=== PATIENT | female | born 1980 | race Caucasian/White ===

== ENCOUNTER 2022-05-25 06:49 | Day surgery (SDC) | payer OTHER, SELFPAY ==
[2022-05-18 14:12] VITALS: BMI 37.9
--- NOTE | 2022-05-21 08:44 | MHC.SHP ---
Pre-Procedural Eval Section A Date of Service: 05/21/22 The patient is an INPATIENT: Yes Changes since office visit: No Cold of Flu in the past 2 weeks, No New Medical Problems, No Changes in Medication and No Patient answered all questions The History & Physical has been completed within 30 days and I have reviewed it.: Yes Section B Chief Complaint: Age-related nuclear cataract, right eye Allergies: Allergies Allergy/AdvReac Type Severity Reaction Status Date / Time levothyroxine AdvReac Intermediate hair loss Verified 05/18/22 14:12 Plan Diagnosis/Plan: Unchanged I have reviewed the history and physical and performed a pertinent physical examination on my patient. No changes have occurred unless specified.
--- NOTE | 2022-05-22 09:55 | HO.ANESPROP2 ---
Documented by User: Lou Nichole NP 05/22/22 09:56 HPI - Anesthesia Eval Consult details Narrative: 41yo F for Right Cataract Extraction IOL Insertion PCP cleared No previous cataract on record [facility] Past Medical History Medical History (Updated 05/19/22 @ 09:11 by Tiffanie Wu RN) COVID-19 vaccine series completed Hypothyroid Legally blind Migraine Retinitis pigmentosa Surgical History Surgical History (Updated 05/18/22 @ 14:10 by Tiffanie Wu RN) History of loop electrical excision procedure (LEEP) Social History Social History Household Members Other:: adult children Are you a primary post acute care nurse to a significant other at home: No Do you presently have visiting nurse or other home services: No Patient Tobacco Use Status: Never used Tobacco Use of substances other than those prescribed or required for medical reasons: No Have you been hit, kicked, punched, or otherwise hurt by someone within the past year? If so, by whom?: No Are you DNR?: No Advance Directives: No Advance Directives Information Provided: Yes (brochure mailed) Advance Directives on File: No Recently lost weight without trying: No Eating poorly because of decreased appetite: No Nutrition Risks: No Nutritional Risk Patient : No FDLMP: 05/16/22 : No Poor oral hygiene: No Meds Allergies Allergy/AdvReac Type Severity Reaction Status Date / Time levothyroxine AdvReac Intermediate hair loss Verified 05/18/22 14:12 Home Medications Medication Instructions Recorded Confirmed Last Taken Type topiramate 50 mg tablet 1 tab PO BID 05/18/22 05/18/22 Unknown History Exam Exam Date and Time: May 22, 2022 0955 Height,Weight and Vital Signs: Height 5 ft 5 in Weight 103.419 kg Assessment and Plan Assessment Anesthesia Assessment: Chart Reviewed Documented by User: Danielle Gibbs MD 05/25/22 08:23 [facility] Active Problems Active Problems: Increased BMI Migraine this am-took topamax. Resolving Denies RANDOLPH Past Medical History Medical History (Updated 05/19/22 @ 09:11 by Tiffanie Wu RN) COVID-19 vaccine series completed Hypothyroid Legally blind Migraine Retinitis pigmentosa Family History Family history of problems with anesthesia: No Surgical History Surgical History (Updated 05/18/22 @ 14:10 by Tiffanie Wu RN) History of loop electrical excision procedure (LEEP) History of Problems with Anesthesia: No Social History Social History Household Members Other:: adult children Are you a primary post acute care nurse to a significant other at home: No Do you presently have visiting nurse or other home services: No Patient Tobacco Use Status: Never used Tobacco Use of substances other than those prescribed or required for medical reasons: No Have you been hit, kicked, punched, or otherwise hurt by someone within the past year? If so, by whom?: No Are you DNR?: No Advance Directives: No Advance Directives Information Provided: Yes (brochure mailed) Advance Directives on File: No Recently lost weight without trying: No Eating poorly because of decreased appetite: No Nutrition Risks: No Nutritional Risk Patient : No FDLMP: 05/16/22 : No Poor oral hygiene: No Meds Allergies Allergy/AdvReac Type Severity Reaction Status Date / Time levothyroxine AdvReac Intermediate hair loss Verified 05/18/22 14:12 Home Medications Medication Instructions Recorded Confirmed Last Taken Type topiramate 50 mg tablet 1 tab PO BID 05/18/22 05/18/22 Unknown History Exam Height,Weight and Vital Signs: Height 5 ft 5 in Weight 103.419 kg Vital Signs Temp Pulse Resp BP Pulse Ox O2 Del Method 05/25/22 07:18 97.0 F 65 18 125/82 98 Room Air Pertinent Lab Results Pertinent Lab Results: Lab Results 05/25/22 Range/Units 06:58 Urine Test NEGATIVE (NEGATIVE) Airway Mallampati Class: II TM Dist: >3cm Neck ROM: Full Loose/Missing/Broken Teeth: Yes (Some missing -extracted) Heart: RRR Lungs: CTAB Assessment and Plan Assessment Anesthesia Assessment: Anesthesia Plan Discussed Final Anesthetic Review Family History of Problems with Anesthesia: No History of Problems with Anesthesia: No NPO: Yes ASA Class: III Final Preanesthetic Review: No Changes in Pt Med Stat, Meds/Allgs Chart Reviewed, Consent Obtained/Reviewed and Anes Risks/Benef Reviewed Patient Risk: Intermediate Procedure Risk: Low Assessment/Block/Sedation in SS: Assess/Block/Sedation-SS Anesthetic Plan Anesthetic Plan: MAC: Disposition: Standard PACU
[2022-05-25 07:13] LABS: UPreg QC Valid YES; Urine Pregnancy NEGATIVE (NEGATIVE)
[2022-05-25 07:18] VITALS: BP 125/82; PULSE 65; RESP 18; TEMP 36.1; O2SAT 98
[2022-05-25] MEDS: Tetracaine HCl/PF 0.5% Oph Sol 4 ML DROPS 1 DROP EYE-RIGHT (07:21)
[2022-05-25] MEDS: Phenylephrine HCL 2.5% Oph SoL 2 ML BOTTLE 1 DROP EYE-RIGHT ×3 (07:21→07:42)
[2022-05-25] MEDS: Tropicamide 1 % Ophth Sol 3 ML BTL 1 DROP EYE-RIGHT ×3 (07:24→07:44)
[2022-05-25] MEDS: Cyclopentolate 1 % Ophth Sol 2 ML DRPBTL 1 DROP EYE-RIGHT ×3 (07:24→07:44)
[2022-05-25] MEDS: Lactated Ringers 500 ML 50 ML IV (07:59)
--- NOTE | 2022-05-25 09:16 | HO.PNOPHT ---
Ophthalmology Procedure Procedure Date of Service: 05/25/22 Ophthalmology Viscoelastic: Healdick Allent Dual Pack Pro Ophthalmology Lenses: TECNIS [id number] (15.5) Procedure Notes: PREOPERATIVE DIAGNOSIS: Decreased visual acuity right eye secondary to cataract POSTOPERATIVE DIAGNOSIS: Same PROCEDURE: Right cataract extraction with intraocular lens insertion SURGEON: Min Terry M.D. ANESTHESIA: Topical/MAC ESTIMATED BLOOD LOSS: None COMPLICATIONS: None After obtaining informed consent, the patient was brought to the operating room suite and placed in the supine position. After adequate sedation per anesthesia, topical drops of Tetracaine were given to the right eye. The eye was then prepped and draped in the usual sterile fashion. The operating room microscope was then positioned over the operative eye and a lid speculum placed. A paracentesis was created. Viscoelastic was then instilled into the anterior chamber. A three plane incision was then created temporally, utilizing a 2.85 mm keratome. Capsulotomy forceps were then utilized to create a circular tear capsulotomy. Hydrodissection and hydrodelineation were carried out until adequate mobilization of the nucleus occurred. Phacoemulsification was then utilized to remove the dense central nucleus followed by removal of the cortical material utilizing the automated aspiration irrigation unit. Viscoelastic was instilled into the posterior capsular bag followed by placement of a posterior chamber intraocular lens without difficulty. The residual Viscoelastic was then removed utilizing the automated IA machine. The wound was checked and found to be watertight. The patient tolerated the procedure well and the lid speculum was removed. Intracameral injection of Vigamox 0.1 mL followed by a subtenon injection of Kenalog-40 0.2 mL were administered. The patient will be seen in the a.m.
[2022-05-25 09:38] VITALS: BP 123/67; PULSE 63; RESP 22; TEMP 36.2; O2SAT 100
== END 2022-05-25 09:44 | disposition home or self-care (01) ==
PROVIDERS: Nurse Practitioner; Visit Provider Ophthalmology
PROC: (CPT 66985; principal; 2022-05-25 08:50)
DX: H25.11 Age-related nuclear cataract, right eye (principal); H54.7 Unspecified visual loss; H35.52 Pigmentary retinal dystrophy; E03.9 Hypothyroidism, unspecified; G43.909 Migraine, unspecified, not intractable, without status migrainosus; Z79.899 Other long term (current) drug therapy; Z88.8 Allergy status to other drugs, medicaments and biological substances
CPT/HCPCS: 66984; 81025; J2250; J3010; J3300; V2632

== ENCOUNTER 2022-06-15 06:35 | Day surgery (SDC) | payer OTHER, SELFPAY ==
[2022-05-18 14:16] VITALS: BMI 37.9
--- NOTE | 2022-06-12 08:11 | MHC.SHP ---
Pre-Procedural Eval Section A Date of Service: 06/12/22 The patient is an INPATIENT: No Changes since office visit: No Cold of Flu in the past 2 weeks, No New Medical Problems, No Changes in Medication and No Patient answered all questions The History & Physical has been completed within 30 days and I have reviewed it.: Yes Section B Chief Complaint: Age-related nuclear cataract, left eye Allergies: Allergies Allergy/AdvReac Type Severity Reaction Status Date / Time levothyroxine AdvReac Intermediate hair loss Verified 05/18/22 14:12 Plan Diagnosis/Plan: Unchanged I have reviewed the history and physical and performed a pertinent physical examination on my patient. No changes have occurred unless specified.
--- NOTE | 2022-06-12 11:33 | HO.ANESPROP2 ---
Documented by User: Lou Nichole NP 06/12/22 11:34 HPI - Anesthesia Eval Consult details Narrative: 42yo F jessi Left Cataract Extraction IOL Insertion PCP cleared Right eye 05/25/22 with TIVA: Fent 50, Midaz 1 PMFSH Past Medical History Medical History COVID-19 vaccine series completed Hypothyroid Legally blind Migraine Retinitis pigmentosa Family History Family history of problems with anesthesia: No Surgical History Surgical History History of loop electrical excision procedure (LEEP) History of Problems with Anesthesia: No Social History Social History Household Members Other:: adult children Are you a primary care transition coordinator to a significant other at home: No Do you presently have visiting nurse or other home services: No Patient Tobacco Use Status: Never used Tobacco Use of substances other than those prescribed or required for medical reasons: No Have you been hit, kicked, punched, or otherwise hurt by someone within the past year? If so, by whom?: No Are you DNR?: No Advance Directives: No Advance Directives Information Provided: Yes (brochure mailed) Advance Directives on File: No Recently lost weight without trying: No Eating poorly because of decreased appetite: No Nutrition Risks: No Nutritional Risk Patient : No FDLMP: 05/16/22 : No Poor oral hygiene: No Meds Allergies Allergy/AdvReac Type Severity Reaction Status Date / Time levothyroxine AdvReac Intermediate hair loss Verified 05/18/22 14:12 Home Medications Medication Instructions Recorded Confirmed Last Taken Type topiramate 50 mg tablet 1 tab PO BID 05/18/22 05/18/22 Unknown History Exam Exam Date and Time: June 12, 2022 1133 Height,Weight and Vital Signs: Height 5 ft 5 in Weight 103.419 kg Assessment and Plan Assessment Anesthesia Assessment: Chart Reviewed Final Anesthetic Review Family History of Problems with Anesthesia: No History of Problems with Anesthesia: No Documented by User: Lucretia Yepez MD 06/15/22 07:40 PMFSH Past Medical History Medical History COVID-19 vaccine series completed Hypothyroid Legally blind Migraine Retinitis pigmentosa Surgical History Surgical History History of loop electrical excision procedure (LEEP) Social History Social History Household Members Other:: adult children Are you a primary care transition coordinator to a significant other at home: No Do you presently have visiting nurse or other home services: No Patient Tobacco Use Status: Never used Tobacco Use of substances other than those prescribed or required for medical reasons: No Have you been hit, kicked, punched, or otherwise hurt by someone within the past year? If so, by whom?: No Are you DNR?: No Advance Directives: No Advance Directives Information Provided: Yes (brochure mailed) Advance Directives on File: No Recently lost weight without trying: No Eating poorly because of decreased appetite: No Nutrition Risks: No Nutritional Risk Patient : No FDLMP: 05/16/22 : No Poor oral hygiene: No Meds Allergies Allergy/AdvReac Type Severity Reaction Status Date / Time levothyroxine AdvReac Intermediate hair loss Verified 05/18/22 14:12 Home Medications Medication Instructions Recorded Confirmed Last Taken Type topiramate 50 mg tablet 1 tab PO BID 05/18/22 05/18/22 Unknown History Exam Airway Mallampati Class: II TM Dist: >3cm Neck ROM: Full Loose/Missing/Broken Teeth: No Heart: RRR Lungs: CTA Assessment and Plan Final Anesthetic Review NPO: Yes ASA Class: II Final Preanesthetic Review: Meds/Allgs Chart Reviewed, Consent Obtained/Reviewed and Anes Risks/Benef Reviewed Patient Risk: Low Procedure Risk: Low Anesthetic Plan Anesthetic Plan: MAC: Disposition: Standard PACU
[2022-06-15 07:27] VITALS: BP 113/67; PULSE 67; RESP 18; TEMP 36.3; O2SAT 99
[2022-06-15 07:29] VITALS: BMI 36.8
[2022-06-15] MEDS: Tetracaine HCl/PF 0.5% Oph Sol 4 ML DROPS 1 DROP EYE-LEFT (07:31)
[2022-06-15] MEDS: Lactated Ringers 500 ML 50 ML IV (07:31)
[2022-06-15] MEDS: Phenylephrine HCL 2.5% Oph SoL 2 ML BOTTLE 1 DROP EYE-LEFT ×3 (07:32→07:37)
[2022-06-15] MEDS: Tropicamide 1 % Ophth Sol 3 ML BTL 1 DROP EYE-LEFT ×3 (07:32→07:38)
[2022-06-15] MEDS: Cyclopentolate 1 % Ophth Sol 2 ML DRPBTL 1 DROP EYE-LEFT ×3 (07:32→07:38)
[2022-06-15 07:37] LABS: UPreg QC Valid YES; Urine Pregnancy NEGATIVE (NEGATIVE)
--- NOTE | 2022-06-15 08:11 | HO.PNOPHT ---
Ophthalmology Procedure Procedure Date of Service: 06/15/22 Ophthalmology Viscoelastic: Healdick Allent Dual Pack Pro Ophthalmology Lenses: TECNIS [id number] (16.5) Procedure Notes: PREOPERATIVE DIAGNOSIS: Decreased visual acuity left eye secondary to cataract POSTOPERATIVE DIAGNOSIS: Same PROCEDURE: Left cataract extraction with intraocular lens insertion SURGEON: Min Terry M.D. ANESTHESIA: Topical/MAC ESTIMATED BLOOD LOSS: None COMPLICATIONS: None After obtaining informed consent, the patient was brought to the operation room suite and placed in the supine position. After adequate sedation per anesthesia, topical drops of Tetracaine were given to the left eye. The eye was then prepped and draped in the usual sterile fashion. The operating room microscope was then positioned over the operative eye and a lid speculum placed. A paracentesis was created. Viscoelastic was then instilled into the anterior chamber. A three plane incision was then created temporally, utilizing a 2.85 mm keratome. Capsulotomy forceps were then utilized to create a circular tear capsulotomy. Hydrodissection and hydrodelineation were carried out until adequate mobilization of the nucleus occurred. Phacoemulsification was then utilized to remove the dense central nucleus followed by removal of the cortical material utilizing the automated aspiration irrigation unit. Viscoat elastic was instilled into the posterior capsular bag followed by placement of a posterior chamber intraocular lens without difficulty. The residual Viscoat elastic was then removed utilizing the automated IA machine. The wound was check and found to be watertight. The patient tolerated the procedure well and the lid speculum was removed. Intracameral injection of Vigamox 0.1 mL followed by a subtenon injection of Kenalog-40 0.2 mL were administered. The patient will be seen in the a.m.
[2022-06-15 08:32] VITALS: BP 129/82; PULSE 59; RESP 16; TEMP 37; O2SAT 99
== END 2022-06-15 08:41 | disposition home or self-care (01) ==
PROVIDERS: Nurse Practitioner; PCP Internal Medicine; Visit Provider Ophthalmology
PROC: (CPT 66985; principal; 2022-06-15 08:20)
DX: H25.12 Age-related nuclear cataract, left eye (principal); H54.7 Unspecified visual loss; H35.52 Pigmentary retinal dystrophy; E03.9 Hypothyroidism, unspecified; G43.909 Migraine, unspecified, not intractable, without status migrainosus; Z79.899 Other long term (current) drug therapy; Z88.8 Allergy status to other drugs, medicaments and biological substances
CPT/HCPCS: 66984; 81025; J2250; J3300; V2632